=== PATIENT | male | born 1935 | race African-American/Black ===

== ENCOUNTER 2018-08-15 14:24 | Emergency (ER) | payer MEDICARE, BC ==
--- NOTE | 2018-08-15 14:55 | ER Document Report ---
ED Medical Screen (RME) - General Chief Complaint: Weakness Stated Complaint: WEAKNESS Time Seen by Provider: 08/15/18 14:43 Mode of Arrival: Ambulatory Information source: Patient Notes: Patient is an 83-year-old male who presents to the emergency department with complaints of generalized weakness, fatigue and palpitations. He patient reports history of hypertension and hyperlipidemia. States he does not live in this area. States all of his symptoms started yesterday. Denies any fevers, nausea, vomiting, diarrhea or body aches. Exam: Lung sounds clear to auscultation bilaterally. Heart sounds regular, S1-S2 appreciated. Patient alert, answering all questions appropriately. I have greeted and performed a rapid initial assessment of this patient. A comprehensive ED assessment and evaluation of the patient, analysis of test results and completion of the medical decision making process will be conducted by additional ED providers. Dictation of this chart was performed using voice recognition software; therefore, there may be some unintended grammatical errors. TRAVEL OUTSIDE OF THE [place] IN LAST 30 DAYS: No - Related Data Allergies/Adverse Reactions: No Known Allergies Allergy (Verified 08/15/18 14:33) Past Medical History - Past Medical History Cardiac Medical History: Reports: Hx Hypercholesterolemia, Hx Hypertension Pulmonary Medical History: Reports: Hx Bronchitis Endocrine Medical History: Reports: Hx Diabetes Mellitus Type 2 - pre-DM Renal/ Medical History: Denies: Hx Peritoneal Dialysis Physical Exam - Vital signs Vitals: Temp Pulse Resp BP Pulse Ox 97.7 F 83 17 186/70 H 97 08/15/18 14:38 08/15/18 14:38 08/15/18 14:38 08/15/18 14:38 08/15/18 14:38 Course - Vital Signs Vital signs: Temp Pulse Resp BP Pulse Ox 97.7 F 83 17 186/70 H 97 08/15/18 14:38 08/15/18 14:38 08/15/18 14:38 08/15/18 14:38 08/15/18 14:38
[2018-08-15 15:41] LABS: HEMOGLOBIN 14.1 g/dL (13.5-17.0); MEAN CORPUSCULAR HEMOGLOBIN 28.9 pg (27.0-33.4); MEAN CORPUSCULAR HGB CONC 33.6 g/dL (32.0-36.0); MEAN CORPUSCULAR VOLUME 86 fl (80-97); PLATELET COUNT 159 10^3/uL (150-450); RED BLOOD COUNT 4.89 10^6/uL (4.35-5.55); RED CELL DISTRIBUTION WIDTH 14.2 % (11.5-14.0); WHITE BLOOD COUNT 4.4 10^3/uL (4.0-10.5)
[2018-08-15 16:00] LABS: ABSOLUTE MONOCYTES # (MANUAL) 0.6 10^3/uL (0.1-1.4); ABSOLUTE NEUTROPHILS# (MANUAL) 1.8 10^3/uL (1.7-8.2); ANISOCYTOSIS SLIGHT; BASOPHILS % (MANUAL) 0 % (0-2); EOSINOPHILS % (MANUAL) 23 % (0-6); LYMPHOCYTES % (MANUAL) 22 % (13-45); MONOCYTES % (MANUAL) 13 % (3-13); PLATELET COMMENT ADEQUATE; SEGMENTED NEUTROPHILS % (MAN) 42 % (42-78); TOTAL CELLS COUNTED 100; TOXIC GRANULATION SLIGHT
--- NOTE | 2018-08-15 16:05 | RADIOLOGY REPORT (SQ) ---
EXAM DESCRIPTION: CHEST SINGLE VIEW COMPLETED DATE/TIME: 08/15/2018 3:51 pm REASON FOR STUDY: PALPITATIONS, SOB COMPARISON: None. EXAM PARAMETERS: NUMBER OF VIEWS: One view. TECHNIQUE: Single frontal radiographic view of the chest acquired. RADIATION DOSE: NA LIMITATIONS: None. FINDINGS: LUNGS AND PLEURA: No opacities, masses or pneumothorax. No pleural effusion. MEDIASTINUM AND HILAR STRUCTURES: No masses. Contour normal. HEART AND VASCULAR STRUCTURES: Heart normal in size. Normal vasculature. BONES: No acute findings. HARDWARE: None in the chest. OTHER: No other significant finding. IMPRESSION: 1. NO ACUTE RADIOGRAPHIC FINDING IN THE CHEST. TECHNICAL DOCUMENTATION: JOB ID: [id number] [employer]- All Rights Reserved Reading location - IP/workstation name: [email or web address]
[2018-08-15 16:09] LABS: CREATINE KINASE MB 1.61 ng/mL (<4.55)
[2018-08-15 16:12] LABS: TROPONIN I < 0.012 ng/mL
[2018-08-15 16:31] LABS: ALANINE AMINOTRANSFERASE 23 U/L (21-72); ALBUMIN 4.2 g/dL (3.5-5.0); ALKALINE PHOSPHATASE 78 U/L (38-126); ANION GAP 7 (5-19); ASPARTATE AMINO TRANSFERASE 30 U/L (17-59); BILIRUBIN,DIRECT 0.3 mg/dL (0.0-0.4); BILIRUBIN,TOTAL 0.6 mg/dL (0.2-1.3); BLOOD UREA NITROGEN 13 mg/dL (7-20); CALCIUM 8.8 mg/dL (8.4-10.2); CARBON DIOXIDE 23 mmol/L (22-30); CHLORIDE 109 mmol/L (98-107); CREATINE KINASE 101 U/L (55-170); GLUCOSE 110 mg/dL (75-110); POTASSIUM 3.7 mmol/L (3.6-5.0); TOTAL PROTEIN 7.8 g/dL (6.3-8.2)
[2018-08-15] MEDS ORDERED: NORMAL SALINE 1000 ML 1,000 ML IV ONE (17:31)
--- NOTE | 2018-08-15 18:03 | ER Document Report ---
ED General - General Chief Complaint: Weakness Stated Complaint: WEAKNESS Time Seen by Provider: 08/15/18 14:43 Mode of Arrival: Ambulatory Information source: Patient Notes: Patient is a 83-year-old male who comes to the emergency room complaining of generalized weakness. States that he just felt like starting yesterday that he just did not feel good and he was afraid he had pneumonia. States that when he got up in the morning he felt just a little "woozy". He states he also took Tylenol and he felt a whole lot better after taking the Tylenol. He denies any fever cough pain is sporadic and can happen at any time he does not get into coughing fits. He states that he just "feels bad" all over. TRAVEL OUTSIDE OF THE [place] IN LAST 30 DAYS: No - HPI Onset: Yesterday - With regard to the ventricle related over Are negative he has a history of joint displacement is 23 05/17/1927 in room 03/25/2012 has a sub- telemetry dislocation as well she twisted past couple year before is Onset/Duration: Sudden, Persistent Quality of pain: Achy Pain Level: 2 Associated symptoms: Allergy/hay fever, Body/muscle aches Exacerbated by: Movement, Walking, Deep breathing Relieved by: Denies Similar symptoms previously: Yes Recently seen / treated by doctor: Yes - Related Data Allergies/Adverse Reactions: No Known Allergies Allergy (Verified 08/15/18 14:33) Past Medical History - General Information source: Patient - Social History Smoking Status: Former Smoker Cigarette use (# per day): No Chew tobacco use (# tins/day): No Smoking Education Provided: No Frequency of alcohol use: None Drug Abuse: None Lives with: Alone Family History: None, Reviewed & Not Pertinent Patient has homicidal ideation: No - Past Medical History Cardiac Medical History: Reports: Hx Hypercholesterolemia, Hx Hypertension Pulmonary Medical History: Reports: Hx Bronchitis Endocrine Medical History: Reports: Hx Diabetes Mellitus Type 2 - pre-DM Renal/ Medical History: Denies: Hx Peritoneal Dialysis Review of Systems - Review of Systems -: Yes ROS unobtainable due to patient's medical condition Constitutional: No symptoms reported EENT: No symptoms reported Cardiovascular: No symptoms reported Respiratory: No symptoms reported Gastrointestinal: No symptoms reported Genitourinary: No symptoms reported Male Genitourinary: No symptoms reported Musculoskeletal: See HPI, Back pain, Muscle pain, Muscle stiffness Skin: No symptoms reported Hematologic/Lymphatic: No symptoms reported Neurological/Psychological: No symptoms reported Physical Exam - Vital signs Vitals: Temp Pulse Resp BP Pulse Ox 97.7 F 83 17 186/70 H 97 08/15/18 14:38 08/15/18 14:38 08/15/18 14:38 08/15/18 14:38 08/15/18 14:38 Interpretation: Hypertensive - Notes Notes: PHYSICAL EXAMINATION: GENERAL: Well-appearing, well-nourished and in no acute distress. HEAD: Atraumatic, normocephalic. EYES: Pupils equal round and reactive to light, extraocular movements intact, sclera anicteric, conjunctiva are normal. ENT: Nares patent, oropharynx clear without exudates. Moist mucous membranes. NECK: Normal range of motion, supple without lymphadenopathy LUNGS: Breath sounds clear to auscultation bilaterally and equal. No wheezes rales or rhonchi. HEART: Regular rate and rhythm without murmurs ABDOMEN: Soft, nontender, nondistended abdomen. No guarding, no rebound. No masses appreciated. Musculoskeletal: Normal range of motion, no pitting or edema. No cyanosis. NEUROLOGICAL: Cranial nerves grossly intact. Normal speech, normal gait. Normal sensory, motor exams PSYCH: Normal mood, normal affect. SKIN: Warm, Dry, normal turgor, no rashes or lesions noted. My physical exam the patient is totally benign I cannot find any abnormalities with the exam. Patient is awake alert and oriented x4 he is well-nourished well-developed and in no distress he is reaching at complaints that are bas ically upper respiratory type symptomatology. Course - Re-evaluation Re-evalutation: 08/15/18 18:43 Patient's course of stay was fairly benign here in the emergency room. Liter fluid seem to help him tremendously he felt much better at the end of those his urine was clean labs were normal chest x-ray was negative at this point were going to let him go home on point and put him on an antihistamine/Chlor-Trimeton to help dry up his nose and cough. - Vital Signs Vital signs: Temp Pulse Resp BP Pulse Ox 97.7 F 83 15 184/84 H 97 08/15/18 18:10 08/15/18 14:38 08/15/18 18:01 08/15/18 18:01 08/15/18 18:01 - Laboratory Result Diagrams: 08/15/18 15:15 08/15/18 15:15 Laboratory results interpreted by me: 08/15/18 08/15/18 15:15 15:15 RDW 14.2 H Eosinophils % (Manual) 23 H Absolute Eos (Manual) 1.0 H Chloride 109 H Discharge - Discharge Clinical Impression: Upper respiratory infection Qualifiers: URI type: unspecified viral URI Qualified Code(s): J06.9 - Acute upper respiratory infection, unspecified Condition: Stable Disposition: HOME, SELF-CARE Instructions: Upper Respiratory Illness ([facility]), Viral Syndrome ([facility]) Additional Instructions: Home and rest. Medication as prescribed. Tylenol every 8 hours for any aches and pains. Return to ER if you have any increase in symptoms or fever. Prescriptions: Chlorpheniramine Maleate [Chlor-Trimeton 4 mg Tablet] 1 tab PO Q4 PRN #1 pkg PRN Reason:
[2018-08-15 18:35] LABS: APPEARANCE,URINE CLEAR; BILIRUBIN,URINE NEGATIVE (NEGATIVE); COLOR,URINE STRAW; GLUCOSE, URINE NEGATIVE (NEGATIVE); KETONES,URINE NEGATIVE (NEGATIVE); LEUKOCYTE ESTERASE,URINE NEGATIVE (NEGATIVE); NITRITE,URINE NEGATIVE (NEGATIVE); PROTEIN,URINE NEGATIVE (NEGATIVE); URINE SPECIFIC GRAVITY 1.006; UROBILINOGEN,URINE NEGATIVE mg/dL (<2.0)
[2018-08-15 19:01] VITALS: BP 178/97
--- NOTE | 2018-08-15 19:51 | EKG REPORT ---
SEVERITY:- BORDERLINE ECG - SINUS RHYTHM PROBABLE LEFT ATRIAL ABNORMALITY : Confirmed by: Asif Velasquez MD 15-Aug-2018 19:50:37
== END 2018-08-15 19:01 | disposition home or self-care (01) ==
LOC: ER 14:24
DX: J06.9 Acute upper respiratory infection, unspecified (principal); R53.1 Weakness; M79.10 Myalgia, unspecified site; E78.00 Pure hypercholesterolemia, unspecified; I10 Essential (primary) hypertension
CPT/HCPCS: 93005; 99285; 36415; 82553; 82550; 85025; 80053; 81001; 84484; 71045; 93010; J7030